=== PATIENT | female | born 1995 | race Caucasian/White ===

== ENCOUNTER 2018-04-26 15:51 | Emergency (ER) | payer BC ==
[~2018-04-26] VITALS: Ht 149.9 cm; Wt 38.9 kg
[2018-04-26 16:23] VITALS: BP 108/71
[2018-04-26 16:54] LABS: URINE HCG NEGATIVE (NEG)
[2018-04-26 16:57] LABS: CLARITY,URINE CLOUDY (Clear); COLOR,URINE YELLOW (Yellow); GLUCOSE, URINE NEGATIVE (Neg); KETONES,URINE NEGATIVE (Neg); LEUKOCYTE ESTERASE ,URINE MODERATE (Neg); NITRITES, URINE NEGATIVE (Neg); OCCULT BLOOD,URINE MODERATE (Neg); PROTEIN,URINE 30 mg/dl (Neg); UROBILINOGEN,URINE 0.2 E.U/dL (0.2-1.0)
[2018-04-26 16:58] LABS: UA COLLECTION TYPE CLN CATCH MIDSTREAM
[2018-04-26 17:06] LABS: BACTERIA,URINE 2+ /HPF (Neg); MUCUS STRANDS NONE SEEN /LPF (Neg); SQUAMOUS EPITHELIAL CELL,UR FEW /LPF (FEW); WBC CLUMPS,URINE MODERATE /HPF (NEGATIVE); WBC,URINE TNTC /HPF (0-4)
[2018-04-26] MEDS ORDERED: CEPH500C5 PO ×2 (17:51→17:52)
[2018-04-26] MEDS ORDERED: PHEN-786 PO ×2 (17:51→17:52)
== END 2018-04-26 18:01 | disposition home or self-care (01) ==
LOC: ER 15:51
DX: N39.0 Urinary tract infection, site not specified (principal); F12.10 Cannabis abuse, uncomplicated; Z79.899 Other long term (current) drug therapy
CPT/HCPCS: 81001; 81025; 87077; 87088; 87186; 99283

== ENCOUNTER 2018-09-02 10:43 | Emergency (ER) | payer BC ==
[~2018-09-02] VITALS: Ht 149.9 cm; Wt 38.8 kg
[~2018-09-02 10:43] MED LIST: CEPH500C5 PO; PHEN-786 PO
[2018-09-02] MEDS ORDERED: normal saline 1000ML IV soln IVB ONE (12:05)
[2018-09-02] MEDS ORDERED: ondansetron/PF 4mg/2ml inj IV ONE (12:05)
[2018-09-02] MEDS: morphine 4 MG/ML inj SYRINge IV PRN ×2 (12:17→13:07)
[2018-09-02 12:21] LABS: CLARITY,URINE CLOUDY (Clear); COLOR,URINE YELLOW (Yellow); GLUCOSE, URINE NEGATIVE (Neg); KETONES,URINE NEGATIVE (Neg); LEUKOCYTE ESTERASE ,URINE MODERATE (Neg); NITRITES, URINE POSITIVE (Neg); OCCULT BLOOD,URINE SMALL (Neg); PROTEIN,URINE TRACE mg/dl (Neg); UROBILINOGEN,URINE 0.2 E.U/dL (0.2-1.0)
[2018-09-02 12:29] LABS: BASOPHILS % (AUTO) 0.2 % (0-1); EOSINOPHILS # (AUTO) 0.1 X10'3 (0-0.9); EOSINOPHILS % (AUTO) 0.5 % (0-6); HEMATOCRIT 47.2 % (35.0-45.0); HEMOGLOBIN 15.4 g/dl (12.0-16.0); LYMPHOCYTES # (AUTO) 1.3 X10'3 (1.1-4.8); LYMPHOCYTES % (AUTO) 11.2 % (21-51); MEAN CORPUSCULAR HEMOGLOBIN 27.6 PG (27.0-31.0); MEAN CORPUSCULAR HGB CONC 32.7 g/dL (33.0-36.5); MEAN CORPUSCULAR VOLUME 84.2 FL (78-98); MEAN PLATELET VOLUME 8.6 FL (7.4-10.4); MONOCYTES # (AUTO) 0.8 X10'3 (0-0.9); MONOCYTES % (AUTO) 7.1 % (2-12); NEUTROPHILS # (AUTO) 9.4 X10'3 (1.8-7.7); PLATELET COUNT 241 X10'3 (140-440); WHITE BLOOD COUNT 11.6 X10'3 (4.5-11.0)
[2018-09-02 12:30] LABS: UA COLLECTION TYPE CLN CATCH MIDSTREAM
--- NOTE | 2018-09-02 12:30 | NUR ---
ultrasound technologist at bedside.
[2018-09-02 12:31] LABS: BACTERIA,URINE 4+ /HPF (Neg); MUCUS STRANDS NONE SEEN /LPF (Neg); SQUAMOUS EPITHELIAL CELL,UR MODERATE /LPF (FEW); URINE HCG NEGATIVE (NEG); WBC CLUMPS,URINE MANY /HPF (NEGATIVE); WBC,URINE TNTC /HPF (0-4)
[2018-09-02 12:42] LABS: ALANINE AMINOTRANSFERASE 16 U/L (12-78); ALBUMIN 4.1 G/DL (3.4-5.0); ALBUMIN/GLOBULIN RATIO 0.9 (1.1-1.5); ALKALINE PHOSPHATASE 62 IU/L (46-116); ANION GAP 7 (8-16); ASPARTATE AMINO TRANSFERASE 17 U/L (10-37); BILIRUBIN,TOTAL 0.9 MG/DL (0.1-1.0); BLOOD UREA NITROGEN 6 MG/DL (7-18); BUN/CREATININE RATIO 11.5 (6.6-38.0); CALCIUM 9.5 MG/DL (8.5-10.1); CHLORIDE 100 MMOL/L (99-107); CREATININE 0.52 MG/DL (0.40-0.90); GLUCOSE 88 MG/DL (70-104); LIPASE 84 U/L (73-393); POTASSIUM 3.6 MMOL/L (3.5-5.1); SODIUM 135 MMOL/L (135-145); TOTAL CARBON DIOXIDE 28.2 MMOL/L (24-32); TOTAL PROTEIN 8.7 G/DL (6.4-8.2); eGFR > 90 ML/MIN
[2018-09-02] MEDS ORDERED: CefTRIAXone/D5W-Rocephin 1gm 50 ML IV ONE (12:50)
[2018-09-02] MEDS ORDERED: ketorolac trometh. 30mg/ml inj. IV ONE (13:05)
[2018-09-02] MEDS ORDERED: morphine 4 MG/ML inj SYRINge IV ONE (13:05)
[2018-09-02] MEDS ORDERED: iohexol 300mg/ml 100ml inj. ONE (13:11)
[2018-09-02 14:08] VITALS: BP 107/69
[2018-09-02] MEDS ORDERED: CEPH500C5 PO (14:11)
[2018-09-02] MEDS ORDERED: HYDR-3965 PO (14:11)
== END 2018-09-02 14:19 | disposition home or self-care (01) ==
LOC: ER 10:44
DX: N10 Acute pyelonephritis (principal); R06.02 Shortness of breath; R07.81 Pleurodynia; F12.90 Cannabis use, unspecified, uncomplicated; Z79.899 Other long term (current) drug therapy; Z98.890 Other specified postprocedural states
CPT/HCPCS: 36415; 74177; 76700; 80053; 81001; 81025; 83690; 85025; 87077; 87088; 87186; 96365; 96375; 96376; 99284; J0696; J1885; J2270; J2405; J7030; Q9967

== ENCOUNTER 2019-01-02 11:05 | Emergency (ER) | payer BC ==
[~2019-01-02] VITALS: Ht 149.9 cm; Wt 40.0 kg
[2019-01-02 11:45] VITALS: BP 111/78
--- NOTE | 2019-01-02 12:16 | NUR ---
pt left with the sandblast carver without being assessed ,but seen by dr burton ,he has done the assessment of the pt.charge nurse pedro luis cordero .pt d/c with police .
== END 2019-01-02 12:20 ==
LOC: ER 11:05
DX: Z04.1 Encounter for examination and observation following transport accident (principal); F12.90 Cannabis use, unspecified, uncomplicated; F10.99 Alcohol use, unspecified with unspecified alcohol-induced disorder; Z98.890 Other specified postprocedural states; Z79.899 Other long term (current) drug therapy; V89.2XXA Person injured in unspecified motor-vehicle accident, traffic, initial encounter; Y93.89 Activity, other specified; Y92.488 Other paved roadways as the place of occurrence of the external cause; Y99.8 Other external cause status; Y90.9 Presence of alcohol in blood, level not specified
CPT/HCPCS: 99283